=== PATIENT | male | born 2000 | race Caucasian/White ===

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

== ENCOUNTER 2023-08-26 12:45 | Emergency (ER) | payer OTHER, SELFPAY ==
[2023-08-26 12:45] VITALS: BP 135/88; PULSE 87; RESP 14; TEMP 37.2; O2SAT 98; BMI 21.8
[2023-08-26 14:06] VITALS: BP 130/85; PULSE 81; RESP 15; O2SAT 100
--- NOTE | 2023-08-26 14:48 | ED.URI ---
HPI - URI/Sore Throat <Rita Carbajal PA-C - Last Filed: 08/26/23 15:00> General Chief Complaint: Upper Respiratory Symptoms Stated Complaint: cough t-3mo Time Seen by Provider: 08/26/23 13:27 Source: patient Mode of arrival: Ambulatory History of Present Illness HPI Narrative: 23-year-old male with no reported past medical history presents to the ED with 3 weeks of lingering cough. Patient states that 3 weeks ago he had a cold, following which all symptoms except the cough resolved. Patient reports a dry cough, which is worse at night making it difficult to sleep. Denies fever, chills, chest pain, shortness of breath, nausea, vomiting. Related Data Previous Rx's Medication Instructions Recorded benzonatate 200 mg capsule 200 mg PO TID PRN cough #30 caps 08/26/23 Allergies Allergy/AdvReac Type Severity Reaction Status Date / Time No Known Drug Allergies Allergy Verified 08/26/23 12:47 Review of Systems <Rita Carbajal PA-C - Last Filed: 08/26/23 15:00> Constitutional Constitutional: Denies chills, Denies fatigue, Denies fever(s), Denies frequent falls, Denies lethargy and Denies weakness Eyes Eyes: Denies change in vision, Denies eye discharge, Denies irritation and Denies loss of vision ENT Ears, Nose, Mouth, and Throat: Denies change in voice, Denies dizziness, Denies neck pain, Denies sore throat and Denies throat swelling Cardiovascular Cardiovascular: Denies chest pain, Denies irregular heart rhythm, Denies lightheadedness, Denies palpitations, Denies dyspnea, Denies dyspnea on exertion and Denies orthopnea Respiratory Respiratory: Reports cough, Denies dyspnea, Denies dyspnea on exertion and Denies wheezing Gastrointestinal Gastrointestinal: Denies abdominal pain, Denies change in bowel habits, Denies diarrhea, Denies nausea and Denies vomiting Musculoskeletal Musculoskeletal: Denies neck pain and Denies numbness Integumentary/Breasts Skin/Breast: Denies pruritus, Denies erythema, Denies rash and Denies wounds Neurologic Neurologic: Denies behavioral changes, Denies confusion, Denies dizziness, Denies frequent falls, Denies loss of vision, Denies numbness and Denies weakness Psychiatric Psychiatric: Denies anxiety, Denies behavioral changes, Denies confusion, Denies depression, Denies homicidal ideation and Denies suicidal ideation Endocrine Endocrine: Denies fatigue, Denies flushing and Denies palpitations Hematologic/Lymphatic Hematologic/Lymphatic: Denies easy bruising Allergic/Immunologic Allergic/Immunologic: Denies urticaria, Denies throat swelling and Denies wheezing Patient History <Rita Carbajal PA-C - Last Filed: 08/26/23 15:00> Medical History (Updated 08/26/23 @ 13:59 by Rita Carbajal PA-C) Nasal congestion Nasal septal deviation No significant medical problems Social History household members: family Smoking Status: Never smoker alcohol intake: current Smoking Status: Never smoker alcohol intake frequency: holidays/special occasions only Substance Use Type: marijuana Exam <Rita Carbajal PA-C - Last Filed: 08/26/23 15:00> Narrative Exam Narrative: Const General:?cooperative, healthy appearing and comfortable HENMT Head:?normal to inspection Ears:?hearing grossly normal bilaterally Nose:?external nose normal Face and sinus:?normal facial exam and sinuses nontender Mouth:?oral mucosae normal Throat:?posterior oropharynx normal Eyes General:?appearance normal, both eyes and all related structures Neck Neck:?normal visual inspection and no lymphadenopathy noted Resp Effort & Inspection:?normal respiratory effort Auscultation:?clear to auscultation bilaterally Cardio Rate:?regular rate Rhythm:?regular rhythm Neuro General:?patient alert, patient awake and patient oriented x3 Initial Vital Signs Initial Vital Signs: Vital Signs Temperature 99.0 F 08/26/23 12:45 Pulse Rate 87 08/26/23 12:45 Respiratory Rate 14 08/26/23 12:45 Blood Pressure 135/88 08/26/23 12:45 Pulse Oximetry 98 08/26/23 12:45 Oxygen Delivery Method Room Air 08/26/23 12:45 <Ladan Espinoza DO - Last Filed: 08/27/23 08:44> Initial Vital Signs Initial Vital Signs: Vital Signs Temperature 99.0 F 08/26/23 12:45 Pulse Rate 87 08/26/23 12:45 Respiratory Rate 14 08/26/23 12:45 Blood Pressure 135/88 08/26/23 12:45 Pulse Oximetry 98 08/26/23 12:45 Oxygen Delivery Method Room Air 08/26/23 12:45 Course <Rita Carbajal PA-C - Last Filed: 08/26/23 15:00> Vital Signs Vital signs: Vital Signs - 8 hr 08/26/23 12:45 08/26/23 14:06 Temperature 99.0 F Pulse Rate 87 81 Respiratory Rate 14 15 Blood Pressure 135/88 130/85 Pulse Oximetry 98 100 Oxygen Delivery Method Room Air Room Air <Ladan Espinoza DO - Last Filed: 08/27/23 08:44> Vital Signs Vital signs: Vital Signs - 8 hr 08/26/23 12:45 08/26/23 14:06 Temperature 99.0 F Pulse Rate 87 81 Respiratory Rate 14 15 Blood Pressure 135/88 130/85 Pulse Oximetry 98 100 Oxygen Delivery Method Room Air Room Air MDM - URI/Sore Throat <Rita Carbajal PA-C - Last Filed: 08/26/23 15:00> MDM Narrative Medical decision making narrative: 23-year-old male with no reported past medical history presents to the ED with 3 weeks of lingering cough. History and physical exam are reassuring with no fevers, lungs clear to auscultation bilaterally, unlikely pneumonia. Patient's symptoms are most consistent with acute bronchitis following a cold. Recommend symptomatic treatment with cough medications. Prescribed Tessalon Perles. ED return precautions discussed with patient. Patient verbalized understanding. Medical records reviewed: Yes Discharge Plan Departure Patient Disposition: Home Clinical Impression: Bronchitis Instructions: DI for Acute Bronchitis Activity Restrictions/Additional Instructions: You were evaluated in the ED today for a cough. Your symptoms are most consistent with acute bronchitis which is an inflammation of your airways, following a cold. Treatment for this is symptomatic and you are being prescribed Tessalon Perles for the cough. Please follow-up with your PCP as soon as possible. Return to the ED if you have worsening symptoms, fever, chills, chest pain, shortness of breath Prescriptions: New benzonatate 200 mg capsule 200 mg PO TID PRN (Reason: cough) Qty: 30 0RF Referrals: David Jha MD [Primary Care Provider] - Stand Alone Forms: Patient Portal/API ED Sign-out <Ladan Espinoza DO - Last Filed: 08/27/23 08:44> Cosign ED Attending Cosignature Attestation: I was available for consultation.
== END 2023-08-26 14:07 | disposition home or self-care (01) ==
PROVIDERS: Emergency Provider Student in an Organized Health Care Education/Training Program; PCP Pediatrics
DX: J20.9 Acute bronchitis, unspecified (principal)
CPT/HCPCS: 99281; 99283